=== PATIENT | female | born 1955 | race Caucasian/White ===

== ENCOUNTER 2022-06-06 20:34 | Observation (INO) | payer MEDICARE, OTHER ==
[~2022-06-06] VITALS: Ht 160 cm; Wt 69.5 kg
[2022-06-06] MEDS ORDERED: LACTATED RINGERS 1,000 ML IV ONE ×2 (20:45)
[2022-06-06] MEDS ORDERED: ONDANSETRON 4 MG/2 ML (SDV) Z0FRAN IVP ONE (20:45)
[2022-06-06] MEDS ORDERED: NS IV 1000 ML 1,000 ML IV SCH (20:45)
[2022-06-06 20:54] LABS: BASOPHILS # (AUTO) 0.1 10^3/uL (0.0-0.1); BASOPHILS % (AUTO) 1 % (0-10); EOSINOPHILS # (AUTO) 0.1 10^3/uL (0.0-0.3); EOSINOPHILS % (AUTO) 1 % (0-10); HEMATOCRIT 40 % (35-52); HEMOGLOBIN 13.9 g/dL (11.5-16.0); LYMPHOCYTES # (AUTO) 3.6 10^3/uL (1.0-4.0); LYMPHOCYTES % (AUTO) 36 % (12-44); MEAN CORPUSCULAR HEMOGLOBIN 32 pg (25-34); MEAN CORPUSCULAR HGB CONC 35 g/dL (32-36); MEAN CORPUSCULAR VOLUME 94 fL (80-99); MEAN PLATELET VOLUME 10.1 fL (9.0-12.2); MONOCYTES # (AUTO) 0.8 10^3/uL (0.0-1.0); MONOCYTES % (AUTO) 8 % (0-12); NEUTROPHILS # (AUTO) 5.3 10^3/uL (1.8-7.8); NEUTROPHILS % (AUTO) 53 % (42-75); PLATELET COUNT 283 10^3/uL (130-400)
[2022-06-06 21:12] LABS: ERYTHROCYTE SEDIMENTATION RATE 6 MM/HR (0-30)
[2022-06-06 21:14] LABS: FIBRIN DEGRADATION PRODUCTS 0.22 UG/ML (0.00-0.49); PROTHROMBIN TIME PATIENT 13.2 SEC (12.2-14.7)
[2022-06-06 21:16] LABS: ALANINE AMINOTRANSFERASE 11 U/L (0-55); ALKALINE PHOSPHATASE 72 U/L (40-136); AMYLASE 74 U/L (25-125); BILIRUBIN,TOTAL 0.2 MG/DL (0.1-1.0); BUN/CREATININE RATIO 11; CALCIUM 8.7 MG/DL (8.5-10.1); CARBON DIOXIDE 18 MMOL/L (21-32); CHLORIDE 102 MMOL/L (98-107); CREATINE KINASE 49 U/L (29-168); CREATININE SERUM 0.83 MG/DL (0.60-1.30); GFR ESTIMATED 77; GLUCOSE 116 MG/DL (70-105); LIPASE 32 U/L (8-78); MAGNESIUM 2.1 MG/DL (1.6-2.4); POTASSIUM 3.5 MMOL/L (3.6-5.0); SODIUM 134 MMOL/L (135-145); TOTAL PROTEIN 6.3 GM/DL (6.4-8.2)
--- NOTE | 2022-06-06 21:22 | Diagnostic Imaging Report ---
CHEST 1 VIEW, AP/PA ONLY Indication: Syncope Comparison: None available. Findings: Hazy opacities are present in both lung bases, greater on the right. No pleural effusion or pneumothorax. Normal heart size. Impression: 1. Bibasilar hazy pulmonary opacities are greater on the right and could be due to pneumonia in the appropriate setting. If this does not fit clinical scenario, then atelectasis is a possibility. 2. Advise followup PA and lateral chest radiographs in 4 weeks after appropriate medical management to ensure resolution. Dictated by: Dictated on workstation # [id number]
--- NOTE | 2022-06-06 21:23 | Diagnostic Imaging Report ---
PROCEDURE: CT head wo r/o stroke. TECHNIQUE: Multiple contiguous axial images were obtained through the brain without the use of intravenous contrast. Auto Exposure Controls were utilized during the CT exam to meet ALARA standards for radiation dose reduction. INDICATION: Hypotension, altered mental status. COMPARISON: None available. FINDINGS: No intracranial hyperdense hemorrhage or space-occupying mass. No hydrocephalus or midline shift. Bryant-white matter differentiation is well-preserved. No hyperdense vessel sign. No sagging of the brainstem or cerebellar tonsillar ectopia. No acute calvarial abnormality. Paranasal sinuses and mastoid air cells are clear. IMPRESSION: No acute intracranial process by CT. Dictated by: Dictated on workstation # [id number]
--- NOTE | 2022-06-06 21:25 | ED Syncope ---
General Chief Complaint: General Problems/Pain Stated Complaint: LOW BP/DIAPHORETIC Source of Information: Patient, EMS History of Present Illness Date Seen by Provider: Jun 06, 2022 Time Seen by Provider: 20:37 Initial Comments PT ARRIVES VIA EMS FROM [facility] PT WAS SITTING AT [place] TABLE AND SUDDENLY PASSED OUT, AND SLUMPED FORWARD ONTO BLACKJACK TABLE. SHE DID NOT FALL OR STRIKE HER HEAD WHEN EMS ARRIVED, PT WAS AWAKE BUT VERY LETHARGIC, PALE, DIAPHORETIC AND HYPOTENSIVE WITH BP'S MID 80'S TO LOW 90'S SYSTOLIC. EMS GAVE APPROXIMATELY 200 ML IV FLUIDS PT C/O NAUSEA ON ARRIVAL. NO VOMITING PT KEEPS EYES CLOSED AND IS MINIMALLY VERBAL ON ARRIVAL--MOSTLY ANSWERING WITH YES OR NO OR NODDING/SHAKING HEAD. SHE DENIES PAIN ANYWHERE SHE DID HAVE A SLIGHT HEADACHE EARLIER, NOT NOW. STATES SHE FELT FINE ALL DAY SHE LIVES NEAR [place], [place]--DROVE HERE BY HERSELF TODAY, AND GOT TO [facility] AROUND 1800. SHE ATE [employer] FOOD FOR DINNER TONIGHT. NO CHEST PAIN NO PALPITATIONS NO SHORTNESS OF BREATH NO VISION CHANGES NO PARESTHESIAS OR MOTOR DEFICITS NO ABDOMINAL PAIN NO NEW BACK PAIN--PT HAS CHRONIC LOW BACK PAIN NO URINARY SYMPTOMS OR INCONTINENCE NO DIARRHEA NO FEVER OR RECENT ILLNESS SHE ADMITS TO "1 BEER" TONIGHT. SHE ADMITS TO USING "MEDICINAL MARIJUANA", DENIES SMOKING CIGARETTES. SHE STATES SHE LAST DRANK ALCOHOL A COUPLE OF MONTHS AGO. NO HISTORY OF SIMILAR PT STATES SHE HAS HTN, LOW BACK PAIN, OSTEOPOROSIS. 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 SHE HAS HAD A ROUTINE PHYSICAL IN THE LAST MONTH SHE HAS NOT MISSED ANY DOSES OF HER MEDICATIONS OR HAD ANY RECENT MEDICATION CHANGES SHE STATES SHE LIVES ALONE AND DOES NOT HAVE ANY RELATIVES NEARBY PCP IN [place], [place] Allergies and Home Medications Allergies Uncoded Allergies: IV CONTRAST (Allergy, Unknown, 06/06/22) Review of Systems Constitutional: see HPI EENTM: no symptoms reported Respiratory: no symptoms reported Cardiovascular: see HPI, syncope Gastrointestinal: see HPI Genitourinary: no symptoms reported Musculoskeletal: see HPI Skin: no symptoms reported Psychiatric/Neurological: See HPI Past Ejymlay-Kcijfm-Vdglbd Hx Patient Social History Tobacco Use?: No Smoking Status: Never a Smoker Use of E-Cig and/or Vaping dev: No Substance use?: Yes Substance type: Marijuana Substance frequency: Daily Alcohol Use?: Yes Alcohol type: Beer Alcohol Frequency: Once in a while Immunizations Up To Date Influenza Vaccine Up-to-Date: No; Not Current First/Initial COVID19 Vaccinat: 2020 Second COVID19 Vaccination Eugene: 2020 Third COVID19 Vaccination Date: NONE 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 Past Medical History Surgeries: Yes Appendectomy, Gallbladder, Rectal, Renal Respiratory: No Cardiac: Yes Hypertension Neurological: No Reproductive Disorders: No 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 Genitourinary: Yes (RIGHT NEPHRECTOMY FOR ATROPHY/NON-FUNCTIONING KIDNEY) Gastrointestinal: Yes Hemorrhoids Musculoskeletal: Yes Degenerate Disk Disease, Osteoporosis, Chronic Back Pain Endocrine: No HEENT: No Cancer: No Psychosocial: No Integumentary: No Blood Disorders: No Family Medical History SOCIAL HISTORY: -DENIES SMOKING CIGARETTES -ETOH--OCCASIONAL USE -DRUGS--MARIJUANA "MEDICINAL" PAST SURGICAL HISTORY: -APPENDECTOMY -CHOLECYSTECTOMY -RIGHT NEPRECTOMY FOR NON-FUNCTIONING/ATROPHIC KIDNEY -HEMORRHOIDECTOMY Physical Exam Vital Signs Vital Signs - First Documented 06/06/22 20:35 Temp 36.9 Pulse 91 Resp 16 B/P (MAP) 88/58 (68) Pulse Ox 96 O2 Delivery Nasal Cannula O2 Flow Rate 2.00 Capillary Refill : Height, Weight, BMI Height: '" Weight: lbs. oz. kg; BMI Method: General Appearance: Other (SITTING UP, BUT IS VERY LETHARGIC, KEEPS EYES CLOSED AND NOT WANTING TO TALK) HEENT: PERRL/EOMI Neck: Normal Inspection; No Carotid Bruit, No JVD Cardiovascular: Regular Rate, Rhythm, No Edema, No JVD, No Murmur, Normal Peripheral Pulses Respiratory: Normal Breath Sounds, No Accessory Muscle Use, No Respiratory Distress Gastrointestinal: Normal Bowel Sounds, No Organomegaly, No Pulsatile Mass, Non Tender Back: No CVA Tenderness Extremities: Normal Capillary Refill, Normal Inspection, Normal Range of Motion, Non Tender, No Calf Tenderness, No Pedal Edema Neurologic/Psychiatric: Alert, Oriented x3, No Motor/Sensory Deficits Cranial Nerves: Normal Hearing, Normal Speech, PERRL Motor/Sensory: No Motor Deficit, No Sensory Deficit Skin: Normal Color, Damp; No Rash Focused Exam Sepsis Stage: Sepsis Possible Source: Pulmonary Lactate Level 06/06/22 20:40: Lactic Acid Level 2.19*H 06/06/22 22:20: Lactic Acid Level 2.06*H Time of Focused Exam: 22:15 Respiratory: Normal Breath Sounds, No Accessory Muscle Use, No Respiratory Distress Cardiovascular: Regular Rate, Rhythm, No Murmur Capillary Refill: Less Than 3 Seconds Lactic Acid Level Laboratory Tests Test 06/06/22 20:40 06/06/22 22:20 Lactic Acid Level 2.19 MMOL/L (0.50-2.00) *H 2.06 MMOL/L (0.50-2.00) *H Within 3hrs of presentation: Admin fluids, Admin ABX, Blood cultures prior to ABX's, Focus exam, Lactate level Progress/Results/Core Measures Results/Orders Lab Results Laboratory Tests Test 06/06/22 20:40 06/06/22 21:34 06/06/22 21:41 06/06/22 22:20 Range/Units White Blood Count 10.0 4.3-11.0 10^3/uL Red Blood Count 4.29 3.80-5.11 10^6/uL Hemoglobin 13.9 11.5-16.0 g/dL Hematocrit 40 35-52 % Mean Corpuscular Volume 94 80-99 fL Mean Corpuscular Hemoglobin 32 25-34 pg Mean Corpuscular Hemoglobin Concent 35 32-36 g/dL Red Cell Distribution Width 12.0 10.0-14.5 % Platelet Count 283 130-400 10^3/uL Mean Platelet Volume 10.1 9.0-12.2 fL Immature Granulocyte % (Auto) 0 % Neutrophils (%) (Auto) 53 42-75 % Lymphocytes (%) (Auto) 36 12-44 % Monocytes (%) (Auto) 8 0-12 % Eosinophils (%) (Auto) 1 0-10 % Basophils (%) (Auto) 1 0-10 % Neutrophils # (Auto) 5.3 1.8-7.8 10^3/uL Lymphocytes # (Auto) 3.6 1.0-4.0 10^3/uL Monocytes # (Auto) 0.8 0.0-1.0 10^3/uL Eosinophils # (Auto) 0.1 0.0-0.3 10^3/uL Basophils # (Auto) 0.1 0.0-0.1 10^3/uL Immature Granulocyte # (Auto) 0.0 0.0-0.1 10^3/uL Erythrocyte Sedimentation Rate 6 0-30 MM/HR Prothrombin Time 13.2 12.2-14.7 SEC INR Comment 1.0 0.8-1.4 Activated Partial Thromboplast Time 30 24-35 SEC D-Dimer 0.22 0.00-0.49 UG/ML Sodium Level 134 L 135-145 MMOL/L Potassium Level 3.5 L 3.6-5.0 MMOL/L Chloride Level 102 98-107 MMOL/L Carbon Dioxide Level 18 L 21-32 MMOL/L Anion Gap 14 5-14 MMOL/L Blood Urea Nitrogen 9 7-18 MG/DL Creatinine 0.83 0.60-1.30 MG/DL Estimat Glomerular Filtration Rate 77 BUN/Creatinine Ratio 11 Glucose Level 116 H 70-105 MG/DL Lactic Acid Level 2.19 *H 2.06 *H 0.50-2.00 MMOL/L Calcium Level 8.7 8.5-10.1 MG/DL Corrected Calcium 8.7 8.5-10.1 MG/DL Magnesium Level 2.1 1.6-2.4 MG/DL Total Bilirubin 0.2 0.1-1.0 MG/DL Aspartate Amino Transf (AST/SGOT) 16 5-34 U/L Alanine Aminotransferase (ALT/SGPT) 11 0-55 U/L Alkaline Phosphatase 72 40-136 U/L Total Creatine Kinase 49 29-168 U/L Creatine Kinase MB 0.8 <6.6 NG/ML Myoglobin 33.0 10.0-92.0 NG/ML Troponin I < 0.028 <0.028 NG/ML C-Reactive Protein High Sensitivity 0.07 0.00-0.50 MG/DL B-Type Natriuretic Peptide < 10.0 <100.0 PG/ML Total Protein 6.3 L 6.4-8.2 GM/DL Albumin 4.0 3.2-4.5 GM/DL Amylase Level 74 25-125 U/L Lipase 32 8-78 U/L TSH [place] Testing 4.03 0.35-4.94 UIU/ML Acetaminophen Level < 10 L 10-30 UG/ML Serum Alcohol 24 H <10 MG/DL Glucometer 84 70-110 MG/DL Influenza Type A (RT-PCR) Not Detected Not Detecte Influenza Type B (RT-PCR) Not Detected Not Detecte SARS-CoV-2 RNA (RT-PCR) Not Detected Not Detecte Blood Gas Puncture Site R RADIAL Blood Gas Patient Temperature 36.9 Arterial Blood pH 7.31 *L 7.37-7.43 Arterial Blood Partial Pressure CO2 41 35-45 MMHG Arterial Blood Partial Pressure O2 74 L 79-93 MMHG Arterial Blood HCO3 20 L 23-27 MMOL/L Arterial Blood Total CO2 21.3 21.0-31.0 MMOL/L Arterial Blood Oxygen Saturation 94 94-100 % Arterial Blood Base Excess -5.2 L -2.5-2.5 MMOL/L Geovanni Test YES-POS Blood Gas Ventilator Setting NO Blood Gas Inspired Oxygen 2L My Orders Orders - ENRRIQUE CARTER DO Accucheck Stat ONCE (06/06/22 20:37) Ed Iv/Invasive Line Start (06/06/22 20:37) Ekg Tracing (06/06/22 20:37) Catheter(Urinary) Insert & Ass 03,15 (06/06/22 20:37) O2 (06/06/22 20:37) Monitor-Rhythm Ecg Trace Only (06/06/22 20:37) Chest 1 View, Ap/Pa Only (06/06/22 20:37) Acetaminophen (06/06/22 20:37) Alcohol (06/06/22 20:37) Amylase (06/06/22 20:37) Arterial Blood Gas (06/06/22 21:41) Bnp Lydia (06/06/22 20:37) Cbc With Automated Diff (06/06/22 20:37) Comprehensive Metabolic Panel (06/06/22 20:37) Creatine Kinase (06/06/22 20:37) Creatine Kinase Mb (06/06/22 20:37) Hs C Reactive Protein (06/06/22 20:37) Fibrin Degradation Products (06/06/22 20:37) Drug Screen Stat (Urine) (06/06/22 20:37) Lactic Acid Analyzer (06/06/22 20:37) Lipase (06/06/22 20:37) Magnesium (06/06/22 20:37) Protime With Inr (06/06/22 20:37) Partial Thromboplastin Time (06/06/22 20:37) Thyroid Analyzer (06/06/22 20:37) Ua Culture If Indicated (06/06/22 20:37) Blood Culture (06/06/22 20:37) Erythrocyte Sedimentation Rate (06/06/22 20:37) Myoglobin Serum (06/06/22 20:37) Troponin I [place] (06/06/22 20:37) Ed Iv/Invasive Line Start (06/06/22 20:37) Covid 19 Inhouse Test (06/06/22 20:37) Influenza A And B By Pcr (06/06/22 20:37) Isolation Central Supply Req (06/06/22 20:37) Ed Iv/Invasive Line Start (06/06/22 20:43) Lactated Ringers (Lr 1000 Ml Iv Solution (06/06/22 20:45) Ondansetron Injection (Zofran Injectio (06/06/22 20:45) Ed Iv/Invasive Line Start (06/06/22 20:43) Lactated Ringers (Lr 1000 Ml Iv Solution (06/06/22 20:45) Ns Iv 1000 Ml (Sodium Chloride 0.9%) (06/06/22 20:45) Ct Head Wo-R/O Stroke (06/06/22 20:49) Ceftriaxone 1 Gm Pre-Mix (Rocephin 1 Gm (06/06/22 22:15) Azithromycin Injection (Zithromax Inject (06/06/22 22:15) Ct Chest/Abdomen/Pelvis Wo (06/06/22 22:08) Albuterol/Ipra Inhalation Soln (Duoneb I (06/06/22 23:00) Dexamethasone Injection (Decadron Injec (06/06/22 23:00) Rt Request For Service (06/06/22 22:55) Svn Small Volume Nebulizer (06/06/22 22:55) Methylprednisolone Sod Succ (Solu-Medrol (06/07/22 00:00) Methylprednisolone Sod Succ (Solu-Medrol (06/07/22 00:15) Medications Given in ED Current Medications Medications Dose Ordered Sig/Lauri Route Start Time Stop Time Status Last Admin Dose Admin Albuterol/ Ipratropium 3 ml ONCE ONCE INH 06/06/22 23:00 06/06/22 23:01 DC 06/06/22 23:13 3 ML Azithromycin 500 mg/Sodium Chloride 255 ml @ 250 mls/hr ONCE ONCE IV 06/06/22 22:15 06/06/22 23:16 DC 06/06/22 23:10 250 MLS/HR Ceftriaxone Sodium/Dextrose 50 ml @ 100 mls/hr ONCE ONCE IV 06/06/22 22:15 06/06/22 22:44 DC 06/06/22 22:23 100 MLS/HR Dexamethasone Sodium Phosphate 20 mg ONCE ONCE IH 06/06/22 23:00 06/06/22 23:01 DC 06/06/22 23:13 20 MG Lactated Ringer's 1,000 ml @ 0 mls/hr Q0M ONCE IV 06/06/22 20:45 06/06/22 20:46 DC 06/06/22 20:53 0 MLS/HR Lactated Ringer's 1,000 ml @ 0 mls/hr Q0M ONCE IV 06/06/22 20:45 06/06/22 20:46 DC 06/06/22 20:53 0 MLS/HR Ondansetron HCl 8 mg ONCE ONCE IVP 06/06/22 20:45 06/06/22 20:46 DC 06/06/22 20:53 8 MG Vital Signs/I&O 06/06/22 06/06/22 06/06/22 06/06/22 20:35 20:45 22:17 23:09 Temp 36.9 36.7 Pulse 91 100 Resp 16 17 B/P (MAP) 88/58 (68) Pulse Ox 96 96 96 O2 Delivery Nasal Cannula Nasal Cannula O2 Flow Rate 2.00 2.00 40.00 06/07/22 00:00 Intake Total 4200 ml Balance 4200 ml Progress Progress Note : Progress Note ON ARRIVAL, PT'S BP IN 60'S SYSTOLIC, HR IN 70'S, O2 SAT LOW 90'S PT WAS PLACED ON O2 AND O2 SATS QUICKLY UP TO 98% ON 2L/NC PLACED IN TRENDELENBERG GIVEN: -IV FLUIDS -ZOFRAN -ANTIBIOTICS PT ADAMANTLY REFUSES CATHETER, AND IS NOW VERY ALERT AND SOMEWHAT HOSTILE AND IS TALKING FINE, OPENS EYES, AND NOW STATES "I'LL START TALKING TO YOU NOW" PT IS STATING NOW THAT SHE DOES NOT WANT TO STAY AND BE ADMITTED HERE OR ANY WHERE ELSE. O2 SATS VARIABLE FROM MID 80'S TO UPPER 90'S--PLACED ON OXIMASK AT 6L. SATS STILL DROP TO MID 80'S. BIPAP INITIATED BP UP TO > 100 SYSTOLIC WITH IV FLUIDS Initial ECG Impression Date: Jun 06, 2022 Initial ECG Impression Time: 20:45 Initial ECG Rate: 78 Initial ECG Rhythm: Normal Sinus Initial ECG Comparisson: No Previous ECG Available Comment INTERPRETED BY ME Diagnostic Imaging Comments CXR--PER RADIOLOGIST REPORT AT 2134] Findings: Hazy opacities are present in both lung bases, greater on the right. No pleural effusion or pneumothorax. Normal heart size. Impression: 1. Bibasilar hazy pulmonary opacities are greater on the right and could be due to pneumonia in the appropriate setting. If this does not fit clinical scenario, then atelectasis is a possibility. 2. Advise followup PA and lateral chest radiographs in 4 weeks after appropriate medical management to ensure resolution. CT HEAD--PER RADIOLOGIST REPORT AT 2132 FINDINGS: No intracranial hyperdense hemorrhage or space-occupying mass. No hydrocephalus or midline shift. Bryant-white matter differentiation is well-preserved. No hyperdense vessel sign. No sagging of the brainstem or cerebellar tonsillar ectopia. No acute calvarial abnormality. Paranasal sinuses and mastoid air cells are clear. IMPRESSION: No acute intracranial process by CT. Reviewed: Reviewed by Me Departure Impression Primary Impression: Syncope Additional Impressions: Pneumonia Acute respiratory failure Sepsis ENRRIQUE CARTER DO Jun 06, 2022 21:25
[2022-06-06 21:36] LABS: CREATINE KINASE MB 0.8 NG/ML (<6.6); TSH (THYROID ANALYZER) 4.03 UIU/ML (0.35-4.94)
[2022-06-06 22:01] LABS: ABG BASE EXCESS -5.2 MMOL/L (-2.5-2.5); ABG OXYGEN SATURATION 94 % (94-100); ABG PCO2 41 MMHG (35-45); ABG PO2 74 MMHG (79-93); ABG TCO2 21.3 MMOL/L (21.0-31.0); ALLENS TEST YES-POS; INSPIRED O2 2L; VENTILATOR NO
[2022-06-06 22:02] LABS: ABG PH 7.31 (7.37-7.43); PATIENT TEMP 36.9
[2022-06-06] MEDS ORDERED: cefTRIAXone 1 GM PRE-MIX 50 ML IV ONE (22:15)
[2022-06-06] MEDS ORDERED: AZITHROMYCIN INJECTION 500 MG in NS (IVPB) 250 ML IV ONE (22:15)
[2022-06-06] MEDS ORDERED: RT-ALBUTEROL/IPRATROPIUM 3 ML (DUONEB) VIAL INH ONE (23:00)
[2022-06-06 23:09] VITALS: BP 112/67
[2022-06-07] MEDS ORDERED: methylPREDNISolone 125 MG (Solu-MEDROL) VIAL IM ONE
[2022-06-07] MEDS ORDERED: methylPREDNISolone 125 MG (Solu-MEDROL) VIAL IVP ONE (00:15)
[2022-06-07 00:39] LABS: BILIRUBIN,URINE NEGATIVE (NEGATIVE); CLARITY,URINE CLEAR; COLOR,URINE YELLOW; GLUCOSE, URINE (UA) NEGATIVE (NEGATIVE); KETONES,URINE NEGATIVE (NEGATIVE); LEUKOCYTE ESTERASE ,URINE NEGATIVE (NEGATIVE); NITRITE,URINE NEGATIVE (NEGATIVE); PROTEIN,URINE NEGATIVE (NEGATIVE)
[2022-06-07 01:04] LABS: BACTERIA,URINE NEGATIVE /HPF
[2022-06-07 01:22] LABS: AMPHETAMINE SCREEN, URINE NEGATIVE (NEGATIVE); BARBITURATE SCREEN URINE NEGATIVE (NEGATIVE); BENZODIAZEPINES SCREEN URINE POSITIVE (NEGATIVE); CANNABINOID SCREEN, URINE POSITIVE (NEGATIVE); COCAINE SCREEN URINE NEGATIVE (NEGATIVE); METHADONE STAT NEGATIVE (NEGATIVE); OPIATE SCREEN URINE NEGATIVE (NEGATIVE); OXYCODONE STAT NEGATIVE (NEGATIVE); PROPOXYPHENE STAT NEGATIVE (NEGATIVE); TRICYCLIC ANTIDEPRESSANTS SCRE NEGATIVE (NEGATIVE)
[2022-06-07] MEDS ORDERED: NS IV 500 ML 500 ML IV PRN (02:30)
--- NOTE | 2022-06-07 02:35 | Tele-ICU Progress Note ---
Subjective Date Seen by a Provider: Jun 07, 2022 Subjective/Events-last exam This virtual visit was conducted using real time audio/video. Thank you for asking us to see this patient for respiratory insufficiency due to pna and septic shock. Recent events: Passed out at [employer] PMH: HTN. LBP, osteoporosis SH: [facility] FH: Non-contributory ROS:as in HPI. PE: Appears comfortable, conversational. VSS. BP now 109/66. O2 sat 98% on 2 LPM NC. HEENT: No obvious masses, adenopathy or JVD. Chest: clear to auscultation. CV: RRR S1 S2 No murmur or added sounds. Abd: Non-tender. Bowel sounds Y. : Unremarkable. 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 No obvious focal findings. Extremities: No edema. Capillary refill < 3 seconds. Skin: unremarkable. Results: Elevated Lactate 2.19, BG 116. Decreased Na 134, K 3.5. AB.31/41/74 on 2 LPM.. CXR: Bibasal infilts. R>L . Available chart/ vitals / labs / images reviewed. Video assessment done using teleICU camera, rest of exam as per RN. A/P: Respiratory insufficiency: Continue present management with )2isma. Monitor for increasing oxygenation needs and/or need for intubation. Critical Care: critically ill patient. Cont. IVF, abx, PRN Zofran. Replace K. Discussed with GREGORY Terry. Asked RN to reach out to eICU if any questions or concerns later. Time spent with patient/coordination of care with other health professionals (mins): 20 Sepsis Event Evaluation Height, Weight, BMI Height: '" Weight: lbs. oz. kg; 26.79 BMI Method: Focused Exam Lactate Level 06/06/22 20:40: Lactic Acid Level 2.19*H 06/06/22 22:20: Lactic Acid Level 2.06*H 06/07/22 00:30: Lactic Acid Level 1.49 Time of Focused Exam: 22:15 Lactic Acid Level Laboratory Tests Test 06/07/22 00:30 Lactic Acid Level 1.49 MMOL/L (0.50-2.00) Exam Exam Patient acknowledged, consented, and participated in this virtual visit which was conducted using real time audio/video Vital Signs Date Time Temp Pulse Resp B/P (MAP) Pulse Ox O2 Delivery O2 Flow Rate FiO2 06/07/22 01:49 104 20 113/72 93 OxyMask 8.00 06/06/22 23:09 100 17 96 40.00 06/06/22 22:17 36.7 06/06/22 20:45 96 Nasal Cannula 2.00 06/06/22 20:35 36.9 91 16 88/58 (68) 96 Nasal Cannula 2.00 I & O 06/07/22 07:00 Intake Total 4200 ml Balance 4200 ml Height & Weight Height: '" Weight: lbs. oz. kg; 26.79 BMI Method: General Appearance: Other (SITTING UP, BUT IS VERY LETHARGIC, KEEPS EYES CLOSED AND NOT WANTING TO TALK) HEENT: PERRL/EOMI Neck: Normal Inspection; No Carotid Bruit, No JVD Respiratory: Normal Breath Sounds, No Accessory Muscle Use, No Respiratory Distress Cardiovascular: Regular Rate, Rhythm, No Murmur Capillary Refill: Less Than 3 Seconds Extremity: Normal Capillary Refill, Normal Inspection, Normal Range of Motion, Non Tender, No Calf Tenderness, No Pedal Edema Neurologic/Psychiatric: Alert, Oriented x3, No Motor/Sensory Deficits Skin: Normal Color, Damp; No Rash Results Lab Laboratory Tests 06/06/22 20:40 Assessment/Plan Assessment/Plan See free text Critical Care: Critically Ill Patient YAA ESTES MD Jun 07, 2022 02:35
[2022-06-07] MEDS ORDERED: VASOPRESSIN INJECTION 20 UNIT in NS (IVPB) 100 ML IV SCH (02:45)
[2022-06-07] MEDS ORDERED: ONDANSETRON 4 MG/2 ML (SDV) Z0FRAN IV PRN (02:45)
[2022-06-07] MEDS ORDERED: EPINEPHrine 1 MG INJECTION 4 MG in NS (IVPB) 248 ML IV SCH (02:45)
[2022-06-07] MEDS ORDERED: NOREPINEPHRINE 8 MG/250 ML 250 ML IV SCH (02:45)
[2022-06-07] MEDS ORDERED: ACETAMINOPHEN 500 MG TAB (TYLENOL) PO PRN (02:45)
[2022-06-07 02:49] VITALS: BP 85/58
[2022-06-07] MEDS ORDERED: RT-ALBUTEROL/IPRATROPIUM 3 ML (DUONEB) VIAL INH PRN (03:00)
[2022-06-07] MEDS ORDERED: LACTATED RINGERS 1,000 ML IV SCH (03:00)
[2022-06-07] MEDS ORDERED: KCL 20 MEQ TAB (K-DUR) PO ONE (03:15)
[2022-06-07 04:49] LABS: BASOPHILS % (AUTO) 0 % (0-10); EOSINOPHILS % (AUTO) 0 % (0-10); HEMATOCRIT 37 % (35-52); HEMOGLOBIN 12.3 g/dL (11.5-16.0); LYMPHOCYTES # (AUTO) 0.7 10^3/uL (1.0-4.0); LYMPHOCYTES % (AUTO) 8 % (12-44); MEAN CORPUSCULAR HEMOGLOBIN 32 pg (25-34); MEAN CORPUSCULAR HGB CONC 33 g/dL (32-36); MEAN CORPUSCULAR VOLUME 95 fL (80-99); MEAN PLATELET VOLUME 10.3 fL (9.0-12.2); MONOCYTES # (AUTO) 0.1 10^3/uL (0.0-1.0); MONOCYTES % (AUTO) 1 % (0-12); NEUTROPHILS # (AUTO) 8.2 10^3/uL (1.8-7.8); NEUTROPHILS % (AUTO) 91 % (42-75); PLATELET COUNT 218 10^3/uL (130-400)
[2022-06-07 05:02] LABS: ALBUMIN 3.3 GM/DL (3.2-4.5); POTASSIUM 4.1 MMOL/L (3.6-5.0)
[2022-06-07 05:04] LABS: TOTAL PROTEIN 5.1 GM/DL (6.4-8.2)
[2022-06-07 05:06] LABS: BILIRUBIN,TOTAL 0.1 MG/DL (0.1-1.0)
[2022-06-07 05:07] LABS: PHOSPHORUS 3.2 MG/DL (2.3-4.7)
[2022-06-07 05:08] LABS: CREATININE SERUM 0.77 MG/DL (0.60-1.30)
[2022-06-07 05:10] LABS: MAGNESIUM 1.7 MG/DL (1.6-2.4)
[2022-06-07 05:28] LABS: LYMPHOCYTES % (MANUAL) 12 %; NEUTROPHILS % (MANUAL) 88 %; RBC MORPH NORMAL
[2022-06-07] MEDS ORDERED: MAGNESIUM 1 GM/100 ML IVPB 400 ML IV ONE (05:34)
[2022-06-07] MEDS ORDERED: methylPREDNISolone 125 MG (Solu-MEDROL) VIAL IV SCH (06:00)
[2022-06-07] MEDS ORDERED: KCL 20 MEQ TAB (K-DUR) PO SCH (06:00)
[2022-06-07] MEDS ORDERED: MAGNESIUM 1 GM/100 ML IVPB 100 ML IV SCH (06:00)
[2022-06-07] MEDS ORDERED: POTASSIUM CL 10MEQ/50ML IVPB 50 ML IV SCH (06:00)
[2022-06-07] MEDS: MAGNESIUM 1 GM/100 ML IVPB 100 ML IV SCH ×3 (06:12→09:07)
[2022-06-07] MEDS ORDERED: CATHETER FLUSH 10 ML SYR IVP PRN (07:45)
--- NOTE | 2022-06-07 07:47 | Diagnostic Imaging Report ---
PROCEDURE: CT chest, abdomen, and pelvis without contrast. TECHNIQUE: Multiple contiguous axial images were obtained through the chest, abdomen, and pelvis without the use of intravenous contrast. Auto Exposure Controls were utilized during the CT exam to meet ALARA standards for radiation dose reduction. INDICATION: Syncope. Hypoxia. Pneumonia. COMPARISON: Chest radiograph 06/06/2022. FINDINGS: CT CHEST: Diffuse interlobular septal thickening and groundglass opacities suspicious for pulmonary edema. Dependent atelectasis in both lungs. No pleural effusion or pneumothorax. Normal heart size. No pericardial effusion. Calcified mediastinal and left hilar lymph nodes. No acute osseous findings. CT ABDOMEN AND PELVIS: Cholecystectomy. The liver, gallbladder, pancreas, spleen, left kidney, left ureter are negative on this noncontrast exam. Distended urinary bladder. Right nephrectomy. No evidence of appendicitis. No free intraperitoneal air or fluid. Reproductive structures are grossly negative. No lymphadenopathy. No evidence of bowel obstruction. No acute osseous findings. IMPRESSION: 1. CT findings compatible with pulmonary edema. Overlying infectious process cannot be excluded. 2. No acute CT findings in the abdomen or pelvis. Agree with preliminary interpretation. Dictated by: Dictated on workstation # [id number]
[2022-06-07] MEDS ORDERED: RT-ALBUTEROL/IPRATROPIUM 3 ML (DUONEB) VIAL INH ONE (08:00)
--- NOTE | 2022-06-07 08:48 | Diagnostic Imaging Report ---
INDICATION: Pneumonia. Frontal chest obtained at 4:43 a.m. compared to 06/06/2022 FINDINGS: Heart and mediastinal silhouette are normal in appearance. There is mild central vascular congestion. There is bibasilar infiltrate which appears similar to the prior study. There is no pneumothorax or significant pleural fluid. IMPRESSION: Stable bibasilar infiltrates with no new abnormality in the chest. Dictated by: Dictated on workstation # [id number]
[2022-06-07] MEDS ORDERED: AZITHROMYCIN 250 MG TAB (ZITHROMAX) PO SCH (09:52)
[2022-06-07] MEDS ORDERED: LISI10TA25 PO (10:52)
[2022-06-07] MEDS ORDERED: CLN.1T PO ×2 (10:52→12:10)
[2022-06-07] MEDS ORDERED: CEFD300C3 PO (10:54)
[2022-06-07] MEDS ORDERED: MULT-1136 PO (11:01)
[2022-06-07] MEDS ORDERED: ASPI325T32 PO (11:01)
[2022-06-07] MEDS ORDERED: ASCO-262 PO (11:01)
[2022-06-07] MEDS ORDERED: MAGN400T39 PO (11:01)
--- NOTE | 2022-06-07 11:42 | Short Stay Summary ---
KAREN SIMEON 06/07/22 1142: History of Present Illness History of Present Illness Reason for visit/HPI This is a 67 y/o female who arrived to the ED via EMS from [facility] after she was witnessed to have slumped over and lost conciousness at a blackjack table. She did fall from her chair or hit her head on anything. EMS reported that on arrival she was concious but lethargic, pale, and diaphoretic - BPs were found to be 80s-90s systolically. She was given a fluid bolus and transported to the ED where her BP remained low. Upon arrival to ED she complained of nausea but no vomiting/pain and denied recent symptoms of illness. She denied any SOB, palpitations, or chest pain. She reports that she is from [place], [place] and traveled to [place] for errands yesterday and decided to go to the [facility] after. She reports she had eaten lunch, had two burgess, and a Dr. Pepper prior to the [facility] and at the [facility] had one beer. She reports use of medical marijuana, denies smoking, and says she does not normally drink alcohol. She used to take xanax/valium "years ago" but hasn't had any for at least 4 years. She later reported on rounds that while cleaning the other day she did find a "diazepam in a drawer and took one because her back was spasming" but that was all that she had and it was "probably ten years old." She reports history of HTN, osteoporosis/osteopenia, and chronic back pack. She mentions on HD#1 that the past 2-3 weeks she has experienced some chills, waking up at night with a dry, non-productive cough, and SOB when walking her dog 3-4 miles each day (her normal). She denies feeling SOB when lying down or doing anything else. She denies fever or other upper respiratory symptoms. At this time she is feeling well and has been off O2, satting 95% on monitor and says she is really wanting to be DC'd home if getting up and around and breakfast go ok. Date of Admission Jun 07, 2022 at 00:05 Date of Discharge 06/07/2022 Time Seen by Provider: 08:15 Attending Physician No,Local Physician Admitting Physician Admitting Physician: Velma Gabriel DO Attending Physician: Velma Gabriel DO Consult Allergies and Home Medications Allergies Uncoded Allergies: IV CONTRAST (Allergy, Unknown, 06/06/22) Patient Home Medication List Home Medication List Reviewed: Yes Ascorbate Calcium (Vitamin C) 500 Mg Tablet, 500 MG PO DAILY, (Reported) Entered as Reported by: TEENA LAGOS on 06/07/22 110 Last Action: Reviewed Aspirin (Aspirin EC) 325 Mg Tablet.dr, 325 MG PO HS, (Reported) Entered as Reported by: TEENA LAGOS on 06/07/22 110 Last Action: Reviewed Cefdinir (Cefdinir) 300 Mg Capsule, 300 MG PO BID Prescribed by: VELMA GABRIEL on 06/07/22 1054 Clonidine HCl (Clonidine HCl) 0.1 Mg Tablet, 0.1 MG PO HS, (Reported) Entered as Reported by: TEENA LAGOS on 06/07/22 1210 Last Action: Reviewed Lisinopril (Lisinopril) 10 Mg Tablet, 10 MG PO DAILY, (Reported) Entered as Reported by: VELMA GABRIEL on 06/07/22 1052 Magnesium Oxide (Magnesium) 400 Mg Magnesium Tablet, 400 MG PO DAILY, (Reported) Entered as Reported by: TEENA LAGOS on 06/07/221100 Last Action: Reviewed Multivitamin (Multivitamin) 1 Each Tablet, 1 EACH PO DAILY, (Reported) Entered as Reported by: TEENA LAGOS on 06/07/221100 Last Action: Reviewed Discontinued Medications Clonidine HCl (Clonidine HCl) 0.1 Mg Tablet, 0.1 MG PO TID, (Reported) Discontinued Reason: No Longer Taking Entered as Reported by: VELMA GABRIEL on 06/07/22 1052 Past [place]-Dnbaae-Tftunf Hx Patient Social History Smoking Status: Never a Smoker Have you traveled recently?: No Alcohol Use?: Yes Substance type: Marijuana Pt feels they are or have been: No Surgeries Yes Appendectomy, Gallbladder, Rectal, Renal Respiratory No Cardiovascular Yes Hypertension Neurological No Reproductive System : No Hx Reproductive Disorders: No WOOD [employer]IP [employer]ST[employer] History: Menopausal Genitourinary Yes (RIGHT NEPHRECTOMY FOR ATROPHY/NON-FUNCTIONING KIDNEY) Gastrointestinal Yes Hemorrhoids Musculoskeletal Yes Degenerate Disk Disease, Osteoporosis, Chronic Back Pain Endocrine History of Endocrine Disorders: No HEENT History of HEENT Disorders: No Cancer No Psychosocial History of Psychiatric Problem: No Integumentary History of Skin or Integumenta: No Blood Transfusions History of Blood Disorders: No Family Medical History Other Significan Family Hx: SOCIAL HISTORY: -DENIES SMOKING CIGARETTES -ETOH--OCCASIONAL USE -DRUGS--MARIJUANA "MEDICINAL" PAST SURGICAL HISTORY: -APPENDECTOMY -CHOLECYSTECTOMY -RIGHT NEPRECTOMY FOR NON-FUNCTIONING/ATROPHIC KIDNEY -HEMORRHOIDECTOMY Review of Systems Constitutional: see HPI EENTM: no symptoms reported Respiratory: see HPI Cardiovascular: see HPI Gastrointestinal: no symptoms reported Genitourinary: no symptoms reported Musculoskeletal: back pain Skin: No lesions, No pruritus, No rash Psychiatric/Neurological: No Symptoms Reported Physical Exam Vital Signs Vital Signs - First Documented 06/06/22 20:35 Temp 36.9 Pulse 91 Resp 16 B/P (MAP) 88/58 (68) Pulse Ox 96 O2 Delivery Nasal Cannula O2 Flow Rate 2.00 Capillary Refill : Less Than 3 Seconds Height, Weight, BMI Height: '" Weight: lbs. oz. kg; 26.79 BMI Method: General Appearance: No Apparent Distress HEENT: PERRL/EOMI, Pharynx Normal, Moist Mucous Membranes Neck: Full Range of Motion, Non Tender, Supple Respiratory: Chest Non Tender, Normal Breath Sounds, Other (Slight, fine inspiratory crackles in lung bases. Otherwise clear de [place]za.) Cardiovascular: Regular Rate, Rhythm, No Edema, No Murmur Gastrointestinal: Normal Bowel Sounds, Non Tender, Soft Back: Normal Inspection Extremity: Non Tender, No Calf Tenderness, No Pedal Edema Neurologic/Psychiatric: Alert, Oriented x3, Normal Mood/Affect Skin: Normal Color, Warm/Dry Short Stay Diagnosis Conclusion Labs Laboratory Tests 06/06/22 20:40: White Blood Count 10.0, Red Blood Count 4.29, Hemoglobin 13.9, Hematocrit 40, Mean Corpuscular Volume 94, Mean Corpuscular Hemoglobin 32, Mean Corpuscular H emoglobin Concent 35, Red Cell Distribution Width 12.0, Platelet Count 283, Mean Platelet Volume 10.1, Immature Granulocyte % (Auto) 0, Neutrophils (%) (Auto) 53, Lymphocytes (%) (Auto) 36, Monocytes (%) (Auto) 8, Eosinophils (%) (Auto) 1, Basophils (%) (Auto) 1, Neutrophils # (Auto) 5.3, Lymphocytes # (Auto) 3.6, Monocytes # (Auto) 0.8, Eosinophils # (Auto) 0.1, Basophils # (Auto) 0.1, Immature Granulocyte # (Auto) 0.0, Erythrocyte Sedimentation Rate 6, Prothrombin Time 13.2, INR Comment 1.0, Activated Partial Thromboplast Time 30, D-Dimer 0.22, Sodium Level 134L, Potassium Level 3.5L, Chloride Level 102, Carbon Dioxide Level 18L, Anion Gap 14, Blood Urea Nitrogen 9, Creatinine 0.83, Estimat Glomerular Filtration Rate 77, BUN/Creatinine Ratio 11, Glucose Level 116H, Lactic Acid Level 2.19*H, Calcium Level 8.7, Corrected Calcium 8.7, Magnesium Level 2.1, Total Bilirubin 0.2, Aspartate Amino Transf (AST/SGOT) 16, Alanine Aminotransferase (ALT/SGPT) 11, Alkaline Phosphatase 72, Total Creatine Kinase 49, Creatine Kinase MB 0.8, Myoglobin 33.0, Troponin I < 0.028, C-Reactive Protein High Sensitivity 0.07, B-Type Natriuretic Peptide < 10.0, Total Protein 6.3L, Albumin 4.0, Amylase Level 74, Lipase 32, TSH War[place] Testing 4.03, Acetaminophen Level < 10L, Serum Alcohol 24H 06/06/22 21:34: Glucometer 84, Influenza Type A (RT-PCR) Not Detected, Influenza Type B (RT-PCR) Not Detected, SARS-CoV-2 RNA (RT-PCR) Not Detected 06/06/22 21:41: Blood Gas Puncture Site R RADIAL, Blood Gas Patient Temperature 36.9, Arterial Blood pH 7.31*L, Arterial Blood Partial Pressure CO2 41, Arterial Blood Partial Pressure O2 74L, Arterial Blood HCO3 20L, Arterial Blood Total CO2 21.3, Arterial Blood Oxygen Saturation 94, Arterial Blood Base Excess -5.2L, Geovanni Test YES-POS, Blood Gas Ventilator Setting NO, Blood Gas Inspired Oxygen 2L 06/06/22 22:20: Lactic Acid Level 2.06*H 06/07/22 00:30: Lactic Acid Level 1.49 06/07/22 00:33: Urine Color YELLOW, Urine Clarity CLEAR, Urine pH 6.0, Urine Specific [place] <=1.005, Urine Protein NEGATIVE, Urine Glucose (UA) NEGATIVE, Urine Ketones NEGATIVE, Urine Nitrite NEGATIVE, Urine Bilirubin NEGATIVE, Urine Urobilinogen 0.2, Urine Leukocyte Esterase NEGATIVE, Urine RBC (Auto) NEGATIVE, Urine RBC NONE, Urine WBC NONE, Urine Crystals NONE, Urine Bacteria NEGATIVE, Urine Casts NONE, Urine Mucus NEGATIVE, Urine Culture Indicated NO, Urine Opiates Screen NEGATIVE, Urine Oxycodone Screen NEGATIVE, Urine Methadone Screen NEGATIVE, Urine Propoxyphene Screen NEGATIVE, Urine Barbiturates Screen NEGATIVE, Ur Tricyclic Antidepressants Screen NEGATIVE, Urine Phencyclidine Screen NEGATIVE, Urine Amphetamines Screen NEGATIVE, Urine Methamphetamines Screen NEGATIVE, Urine Benzodiazepines Screen POSITIVEH, Urine Cocaine Screen NEGATIVE, Urine Cannabinoids Screen POSITIVEH 06/07/22 02:36: Glucometer 92 06/07/22 04:36: White Blood Count 9.0, Red Blood Count 3.88, Hemoglobin 12.3, Hematocrit 37, Mean Corpuscular Volume 95, Mean Corpuscular Hemoglobin 32, Mean Corpuscular Hemoglobin Concent 33, Red Cell Distribution Width 11.9, Platelet Count 218, Mean Platelet Volume 10.3, Immature Granulocyte % (Auto) 0, Neutrophils (%) (Auto) 91H, Lymphocytes (%) (Auto) 8L, Monocytes (%) (Auto) 1, Eosinophils (%) (Auto) 0, Basophils (%) (Auto) 0, Neutrophils # (Auto) 8.2H, Lymphocytes # (Auto) 0.7L, Monocytes # (Auto) 0.1, Eosinophils # (Auto) 0.0, Basophils # (Auto) 0.0, Immature Granulocyte # (Auto) 0.0, Neutrophils % (Manual) 88, Lymphocytes % (Manual) 12, Blood Morphology Comment NORMAL, Sodium Level 134L, Potassium Level 4.1, Chloride Level 106, Carbon Dioxide Level 17L, Anion Gap 11, Blood Urea Nitrogen 7, Creatinine 0.77, Estimat Glomerular Filtration Rate 84, BUN/Creatinine Ratio 9, Glucose Level 140H, Calcium Level 8.0L, Corrected Calcium 8.6, Phosphorus Level 3.2, Magnesium Level 1.7, Total Bilirubin 0.1, Aspartate Amino Transf (AST/SGOT) 17, Alanine Aminotransferase (ALT/SGPT) 17, Alkaline Phosphatase 61, Total Protein 5.1L, Albumin 3.3 Conclusion/Plan Assessment This is a 67 y/o female who presented after a syncopal episode and admitted for suspected sepsis and acute hypoxic respiratory failure Plan Syncope AHRF Hypotensive/hypovolemic shock Community acquired pneumonia vs pulmonary edema Lactic acidemia Neutrophilia Syncope AHRF Hypovolemic shock -resolved Lactic acidemia - resolved Neutrophilia 2/2 Pneumonia vs pulmonary edema vs respiratory depression (alcohol intake + ?benzo?) vs vasovagal -CXR and CT most c/w pulmonary edema/atelectasis but cannot exclude infectious overlying process in lung bases -WBC of 10, but neutrophilia present on diff; afebrile -ABG of 7.31/41/74/20 - most suggestive of acute respiratory acidosis given picture -If pure metabolic acidosis as primary would expect CO2 compensation to be 36-40 mmHg -Patient has stabilized, O2 off; satting mid 90s without symptoms. -Labs largely unchanged from initial -Troponin/BNP normal -BPs are now in low 100s to 120 systolically; patient reports she is usually h ypertensive -Initially given ceftriaxone/Azithro for CAP, fluid resuscitated -Lactic acid 2.19 -> 1.49 (06/07) - could be 2/2 infection or hypovolemic shock -Will transition to PO cefdinir to continue coverage for CAP given patient's recent cough, SOB -Likely will need echo outpatient to evaluate reported pulm edema HTN -Can continue home meds FEN/GI -DC fluids today -Replace electrolytes as needed -Regular diet -Bowel regimen PRN, zofran/PPI as needed. Dispo: Patient is stabilized and wanting to go home. Will plan to DC on PO antibiotics if patient does ok with PT and being OOB and recommend patient FU with PCP in [place]. VELMA GABRIEL DO 06/08/22 0420: Allergies and Home Medications Allergies Uncoded Allergies: IV CONTRAST (Allergy, Unknown, 06/06/22) Patient Home Medication List Ascorbate Calcium (Vitamin C) 500 Mg Tablet, 500 MG PO DAILY, (Reported) Entered as Reported by: TEENA LAGOS on 06/07/22 110 Last Action: Reviewed Aspirin (Aspirin EC) 325 Mg Tablet., 325 MG PO HS, (Reported) Entered as Reported by: TEENA LAGOS on 06/07/22 110 Last Action: Reviewed Cefdinir (Cefdinir) 300 Mg Capsule, 300 MG PO BID Prescribed by: VELMA GABRIEL on 06/07/22 1054 Clonidine HCl (Clonidine HCl) 0.1 Mg Tablet, 0.1 MG PO HS, (Reported) Entered as Reported by: TEENA LAGOS on 06/07/22 1210 Last Action: Reviewed Lisinopril (Lisinopril) 10 Mg Tablet, 10 MG PO DAILY, (Reported) Entered as Reported by: VELMA GABRIEL on 06/07/22 1052 Magnesium Oxide (Magnesium) 400 Mg Magnesium Tablet, 400 MG PO DAILY, (Reported) Entered as Reported by: TEENA LAGOS on 06/07/22 1101 Last Action: Reviewed Multivitamin (Multivitamin) 1 Each Tablet, 1 EACH PO DAILY, (Reported) Entered as Reported by: TEENA LAGOS on 06/07/22 1101 Last Action: Reviewed Discontinued Medications Clonidine HCl (Clonidine HCl) 0.1 Mg Tablet, 0.1 MG PO TID, (Reported) Discontinued Reason: No Longer Taking Entered as Reported by: VELMA GABRIEL on 06/07/22 1052 Past Xayfowf-Rsdnso-Yxeqju Hx Patient Social History Marrital Status: single Employed/Student: retired Review of Systems Constitutional: see HPI Physical Exam General Appearance: No Apparent Distress, WD/WN, Chronically ill Respiratory: Lungs Clear, Normal Breath Sounds Cardiovascular: Regular Rate, Rhythm Neurologic/Psychiatric: Alert, Oriented x3 Short Stay Diagnosis Discharge Diagnosis-Short Stay Admission Diagnosis: Hypotension PNA Syncope Final Discharge Diagnosis: Sepsis Hypotension from volume depletion PNA Syncope Conclusion Conclusion/Plan DC home Supervisory-Addendum Brief Verification & Attestation Participated in pt care: history, MDM, physical Personally performed: exam, history, MDM, supervision of care Care discussed with: Medical Student Procedures: n/a Results interpretation: Verified all documentation Verification and Attestation of Medical Student E/M Service A medical student performed and documented this service in my presence. I reviewed and verified all information documented by the medical student and made modifications to such information, when appropriate. I personally performed the physical exam and medical decision making. Velma Gabriel, Jun 08, 2022,04:20 KAREN SIMEON Jun 07, 2022 11:42 VELMA GABRIEL DO Jun 08, 2022 04:20
[2022-06-07] MEDS ORDERED: methylPREDNISolone 40 MG/ML (Solu-MEDROL) VIAL IV SCH (12:00)
[2022-06-07] MEDS ORDERED: cefTRIAXone 1 GM IV (PRE-MIX) 50 ML IV SCH (22:30)
== END 2022-06-07 12:23 | disposition home or self-care (01) ==
LOC: ER 20:37 → INTOOBSV 06-07 00:05 → ICU 06-07 00:05
PROVIDERS: ADMIT Internal Medicine; ATTEND Internal Medicine
DX: A41.9 Sepsis, unspecified organism (principal); I95.9 Hypotension, unspecified; J18.9 Pneumonia, unspecified organism; R55 Syncope and collapse; E87.20 Acidosis, unspecified; M81.0 Age-related osteoporosis without current pathological fracture; M54.9 Dorsalgia, unspecified; D72.0 Genetic anomalies of leukocytes; J96.00 Acute respiratory failure, unspecified whether with hypoxia or hypercapnia; E86.1 Hypovolemia; I10 Essential (primary) hypertension; Z79.899 Other long term (current) drug therapy
CPT/HCPCS: 70450; 71045 ×2; 71250; 74176; 80053 ×2; 80306; 81000; 82150; 82550; 82553; 82805; 82947 ×2; 83605 ×2; 83690; 83735 ×2; 83874; 83880; 84100; 84443; 84484; 85007; 85025; 85027; 85379; 85610; 85652; 85730; 86141; 87040; 87081; 87636; 93005; 93041; 94640; 94660; 94760; 96366; 96375; 96376; 99285; C8929; G0480 ×2; 36415; 80320; 80329; 93306